=== PATIENT | female | born 1975 | race Caucasian/White ===

== ENCOUNTER → 2016-07-19 13:43 | Emergency (ER) | payer OTHER ==
[~2016-07-19 13:43] MED LIST: AMOXICILLIN PO; BACTRIM DS TABL1 TA1 PO; BACTRIM DS TABL1 TA2 PO; BENTYL10 MG PO; BENTYL20 MG DOB; BENTYL20 MG PO; CARAFATE1 GM PO; CELEXA PO; CIPRO PO; CLINDAMYCIN HC300 MG PO; CYMBALTA PO; CYMBALTA20 MG PO; DEPO-PROVER150 MG/ML INJ; DICLOFENAC PO; FIORICET 50-321 EACH PO; FLAGYL PO; HYDROCODON-ACE1 EAC7 PO; IBUPROFEN800 MG PO; KETOPROFEN PO; LISINOPRIL5 MG PO; LODINE400 MG PO; LOMOTIL TABLET1 TAB PO; LORTAB 10-5001 EACH PO; LORTAB 5/500 TA1 TA1 PO; MEDROL DOSEPAK4 MG DOB; MOBIC PO; NAPROSYN250 M1 PO; NAPROSYN500 MG PO; NEURONTIN PO; NEURONTIN100 MG PO; NEURONTIN800 MG DOB; NEURONTIN800 MG PO; OMEPRAZOLE40 MG PO; ORUDIS75 M1 PO; PEN-VEE K PO; PERCOCET 10/3251 TAB PO; PHENERGAN PO; PHENERGAN25 M1 PO; PHENERGAN25 MG PO; PREDNISONE10 MG/DOSE; PREDNISONE10 MG/DOSE PO; PRILOSEC PO; PRILOSEC20 MG PO; PRILOSEC40 MG; PRILOSEC40 MG PO; PROTONIX PO; SEROQUEL PO; SEROQUEL XR200 MG PO; SEROQUEL XR400 M1 PO; SEROQUEL25 MG PO; SEROQUEL300 M1 PO; SEROQUEL300 MG PO; TRAMADOL HCL50 M1 PO; TYLENOL #3 PO; ULTRAM PO; VICODIN 5/1 TAB 5/50 PO; VICODIN 5/500 T1 TAB PO; VICODIN PO; VOLTAREN75 MG PO; ZANTAC150 M1 PO; ZESTRIL5 MG PO; ZOFRAN ODT4 MG PO; [UNRECOGNIZED DRUG - REMARK]
== END | disposition left against medical advice (07) ==
LOC: CED 13:43
DX: Z53.21 Procedure and treatment not carried out due to patient leaving prior to being seen by health care provider (principal)

== ENCOUNTER 2016-11-11 12:51 | Emergency (ER) | payer OTHER ==
[~2016-11-11] VITALS: Ht 158.8 cm; Wt 109.8 kg
[~2016-11-11 12:51] MED LIST changes: -NEURONTIN800 MG PO; -SEROQUEL300 MG PO
[2016-12-02] MEDS ORDERED: NEURONTIN800 MG PO (15:05)
[2016-12-02] MEDS ORDERED: SEROQUEL300 MG PO (15:05)
== END 2016-11-11 13:37 | disposition home or self-care (01) ==
LOC: CFTX 12:51 → CED 12:51 → CFTX 13:32
DX: L03.315 Cellulitis of perineum (principal); I10 Essential (primary) hypertension; F41.9 Anxiety disorder, unspecified; F17.210 Nicotine dependence, cigarettes, uncomplicated; Z98.51 Tubal ligation status; Z98.890 Other specified postprocedural states; Z88.1 Allergy status to other antibiotic agents; Z88.6 Allergy status to analgesic agent; Z88.8 Allergy status to other drugs, medicaments and biological substances
CPT/HCPCS: 99282

== ENCOUNTER 2016-11-25 10:48 | Emergency (ER) | payer OTHER ==
[~2016-11-25] VITALS: Ht 160 cm; Wt 102.0 kg
[2016-12-02] MEDS ORDERED: SEROQUEL300 MG PO (15:05)
[2016-12-02] MEDS ORDERED: NEURONTIN800 MG PO (15:05)
== END 2016-11-25 12:15 | disposition home or self-care (01) ==
LOC: CED 10:48 → CFTX 10:48
DX: L02.412 Cutaneous abscess of left axilla (principal); I10 Essential (primary) hypertension; F41.9 Anxiety disorder, unspecified; F32.9 Major depressive disorder, single episode, unspecified; J44.9 Chronic obstructive pulmonary disease, unspecified; F17.200 Nicotine dependence, unspecified, uncomplicated; Z88.1 Allergy status to other antibiotic agents; Z88.5 Allergy status to narcotic agent; Z88.8 Allergy status to other drugs, medicaments and biological substances
CPT/HCPCS: 10060; 99282

== ENCOUNTER 2016-11-27 17:20 | Emergency (ER) | payer OTHER ==
[~2016-11-27] VITALS: Ht 157.5 cm; Wt 102.0 kg
[2016-12-02] MEDS ORDERED: SEROQUEL300 MG PO (15:05)
[2016-12-02] MEDS ORDERED: NEURONTIN800 MG PO (15:05)
== END 2016-11-27 18:27 | disposition home or self-care (01) ==
LOC: CFTX 17:20 → CED 17:20 → CFTX 18:27
DX: L02.412 Cutaneous abscess of left axilla (principal); J44.9 Chronic obstructive pulmonary disease, unspecified; I10 Essential (primary) hypertension; F41.9 Anxiety disorder, unspecified; F32.9 Major depressive disorder, single episode, unspecified; G47.00 Insomnia, unspecified; F17.210 Nicotine dependence, cigarettes, uncomplicated; Z98.51 Tubal ligation status; Z88.1 Allergy status to other antibiotic agents; Z88.6 Allergy status to analgesic agent; Z88.8 Allergy status to other drugs, medicaments and biological substances
CPT/HCPCS: 99283

== ENCOUNTER → 2016-12-02 | Outpatient (CLI) | payer OTHER ==
[~2016-12-02] MED LIST changes: +NEURONTIN800 MG PO; +SEROQUEL300 MG PO
[2016-12-02 15:41] LABS: HEMATOCRIT 39.2 % (35.0-45.0); HEMOGLOBIN 13.4 gm/dL (12.0-16.0); MEAN CELL VOLUME 86.4 FL (83-96); MEAN CORPUSCULAR HEMOGLOBIN 29.5 PG (28-34); MEAN CORPUSCULAR HGB CONC 34.1 g/dL (30-36); MEAN PLATELET VOLUME 7.3 FL (6.5-11.5); RED BLOOD COUNT 4.54 X10e (3.90-5.30); RED CELL DISTRIBUTION WIDTH 13.7 % (11.0-15.5); WHITE BLOOD COUNT 7.5 X10e3 (4.0-10.5)
[2016-12-02 16:05] LABS: BUN/CREATININE RATIO 13.33; CALCIUM SERUM 9.7 mg/dL (8.4-10.2); CREATININE SERUM 0.6 mg/dL (0.6-1.4); GLOM FILT RATE Estimated 112.4 mL/min (>60); POTASSIUM 3.8 mmol/L (3.5-5.1)
== END | disposition home or self-care (01) ==
LOC: CAMB 14:38
PROVIDERS: Specialist
DX: Z01.812 Encounter for preprocedural laboratory examination (principal); L73.2 Hidradenitis suppurativa
CPT/HCPCS: 36415; 80048; 85027

== ENCOUNTER → 2016-12-10 | Day surgery (SDC) | payer OTHER ==
--- NOTE | ~2016-12-10 | OR ---
Unit #: [id number] #: [id number] Patient: ZANA LEA [id number] [facility] [address] [place], [place] [address] [id number] MR#: [id number] NAME: ZANA LEA ROOM: Date of Procedure: 12/10/2016 Admission Date: 12/10/2016 Surgeon: Bob Aguilar M.D. : 1975 Attending Physician: Bob Aguilar M.D. Primary Care Physician: Colin Rodriguez M.D. 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 PROCEDURE PERFORMED Excision of left axillary chronic draining sinus tract and underlying sebaceous gland. ANESTHESIA General endotracheal anesthesia. ESTIMATED BLOOD LOSS Less than 10 mL. INDICATIONS FOR PROCEDURE Ms. Lea is a 41-year-old female, who has had a previous left axillary resection for chronic hidradenitis. She did well for some time, but then presented to the office with recurrence of a single chronic draining sinus tract that would not respond to local treatment and antibiotics. Because of the frequent recurrences in the underlying palpable gland, we plan on doing a localized resection. DESCRIPTION OF PROCEDURE The patient was admitted to [facility], positively identified, and transported to the operating room, and after induction of general endotracheal anesthesia, she received IV antibiotics. The arm was abducted on an operating arm board and she was prepped and draped in usual sterile fashion. With the patient's help in preoperative hold, I had marked the areas of tenderness and the enlarged gland. In the operating room, a wedge excision to include the sinus tract was performed. I created medial and lateral skin flaps and dissected out the underlying tissue en bloc. I palpated throughout the region. No other palpable abnormalities were noted. 30 mL of 0.5% Marcaine with epinephrine was infiltrated in the fascia and soft tissue. I closed the soft tissue in layers using 2-0 Vicryl interrupted suture and the skin was closed using a 4-0 nylon vertical mattress sutures. Telfa and Tegaderm were placed as dressing. Sponges and needle counts were correct x3. The patient tolerated the procedure well and was transported to recovery in stable Unit #: [id number] #: [id number] Patient: ZANA LEA condition. Findings and postoperative instructions were discussed with her brother. Dictated by... Shavon Warner/joaquin TD: 12/10/2016 16:57 JOB #: [id number] OPERATIVE REPORT Page 1 of 1 X Bob Aguilar MD X PROCEDURE OPERATIVE NOTE
== END | disposition home or self-care (01) ==
LOC: CSUR 11:40
DX: L73.2 Hidradenitis suppurativa (principal); L72.0 Epidermal cyst; F32.9 Major depressive disorder, single episode, unspecified; F41.9 Anxiety disorder, unspecified; I10 Essential (primary) hypertension; J30.9 Allergic rhinitis, unspecified; E66.01 Morbid (severe) obesity due to excess calories; F17.210 Nicotine dependence, cigarettes, uncomplicated; J44.9 Chronic obstructive pulmonary disease, unspecified; K21.9 Gastro-esophageal reflux disease without esophagitis; Z87.442 Personal history of urinary calculi; Z68.41 Body mass index [BMI] 40.0-44.9, adult; Z88.5 Allergy status to narcotic agent; Z88.8 Allergy status to other drugs, medicaments and biological substances; Z98.51 Tubal ligation status; Z98.890 Other specified postprocedural states; Z79.899 Other long term (current) drug therapy
CPT/HCPCS: 84703; 88304; J1100; J1170; J2250; J3010; J3370

== ENCOUNTER 2016-12-30 14:50 | Emergency (ER) | payer OTHER ==
[~2016-12-30] VITALS: Ht 160 cm; Wt 109.8 kg
[2016-12-30 15:59] LABS: BASOPHIL% 0.3 % (0-2.5); EOSINOPHIL# 0.1 X10e3 (0-0.7); EOSINOPHIL% 1.7 % (0.0-7.0); HEMATOCRIT 38.9 % (35.0-45.0); LYMPHOCYTE# 2.8 X10e3 (1.0-3.5); LYMPHOCYTE% 40.1 % (17.0-45.0); MEAN CELL VOLUME 86.9 FL (83-96); MEAN CORPUSCULAR HEMOGLOBIN 29.1 PG (28-34); MEAN CORPUSCULAR HGB CONC 33.5 g/dL (30-36); MEAN PLATELET VOLUME 7.3 FL (6.5-11.5); MONOCYTE# 0.5 X10e3 (0-1.0); MONOCYTE% 6.9 % (3.0-12.0); NEUTROPHIL# 3.6 X10e3 (1.5-7.1); PLATELET COUNT 364 X10e3 (140-420); RED BLOOD COUNT 4.48 X10e (3.90-5.30); RED CELL DISTRIBUTION WIDTH 13.4 % (11.0-15.5)
[2016-12-30 16:08] LABS: DIFF IND NO
[2016-12-30 16:20] LABS: BUN/CREATININE RATIO 8.33; CALCIUM SERUM 9.5 mg/dL (8.4-10.2); CREATININE SERUM 0.6 mg/dL (0.6-1.4); GLOM FILT RATE Estimated 112.4 mL/min (>60); POTASSIUM 3.9 mmol/L (3.5-5.1)
== END 2016-12-30 17:50 | disposition home or self-care (01) ==
LOC: CED 14:50
PROVIDERS: Emergency Medicine
DX: T81.31XA Disruption of external operation (surgical) wound, not elsewhere classified, initial encounter (principal); F41.9 Anxiety disorder, unspecified; F32.9 Major depressive disorder, single episode, unspecified; J44.9 Chronic obstructive pulmonary disease, unspecified; G43.909 Migraine, unspecified, not intractable, without status migrainosus; F17.210 Nicotine dependence, cigarettes, uncomplicated; Z98.51 Tubal ligation status; Z79.899 Other long term (current) drug therapy; Z88.1 Allergy status to other antibiotic agents; Z88.8 Allergy status to other drugs, medicaments and biological substances
CPT/HCPCS: 80048; 85025; 87070; 87077; 87186; 87205; 99283

== ENCOUNTER 2017-01-03 09:33 | Emergency (ER) | payer OTHER ==
[~2017-01-03] VITALS: Ht 160 cm; Wt 111.6 kg
== END 2017-01-03 11:53 | disposition home or self-care (01) ==
LOC: CFTX 09:33 → CED 09:33 → CFTX 11:43
DX: T81.31XA Disruption of external operation (surgical) wound, not elsewhere classified, initial encounter (principal); J06.9 Acute upper respiratory infection, unspecified; F41.9 Anxiety disorder, unspecified; J44.9 Chronic obstructive pulmonary disease, unspecified; F17.200 Nicotine dependence, unspecified, uncomplicated; Z88.8 Allergy status to other drugs, medicaments and biological substances; Z88.5 Allergy status to narcotic agent
CPT/HCPCS: 99283